=== PATIENT | female | born 1955 | race Caucasian/White ===

== ENCOUNTER → 2016-11-12 | Outpatient (CLI) | payer BC ==
[~2016-11-12] MED LIST: BORON; BUTALBITAL/APAP1 TA1 PO; CENTRUM1 TAB PO; CRESTOR 10MG10 MG PO; FIORINAL; FLEXERIL 1010 MG/TAB PO; FLEXERIL10 MG PO; FLOVENT 110MCG7.9 GM IH; FOSAMAX 70MG TA70 MG PO; FOSAMAX70 MG PO; GLUCOSAMINE & C1 TA1 PO; GLUCOSAMINE PO; GLUCOSAMINE/CHONDROI; HCTZ 25MG25 MG PO; LEVOTHYROXINE0.05 M1 PO; LEVOXYL0.05 MG PO; LOVAZA1 GM PO; MAXALT MLT10 MG/TAB PO; MAXALT10 MG PO; NASONEX SPRAY; OSCAL 500MG/VI500 MG PO; PLAVIX 75MG TAB75 MG PO; PREMARIN 0.9MG0.9 MG PO; PRILOSEC 20MG20 MG PO; SINGULAIR10 MG PO; SUDAFED 12HR120 MG PO; SYMBICORT1 AE1 IH; TYLENOL 500MG500 MG PO; XOPENEX 3 ML3 M1 IH
== END ==
LOC: MC.RAD 08:57
DX: Z12.31 Encounter for screening mammogram for malignant neoplasm of breast (principal)

== ENCOUNTER → 2017-12-02 | Outpatient (CLI) | payer BC | LOC: MC.RAD 10:32 | DX: Z12.31 Encounter for screening mammogram for malignant neoplasm of breast (principal) ==

== ENCOUNTER → 2018-12-19 | Outpatient (CLI) | payer MEDICARE, OTHER | LOC: MC.RAD 14:57 | DX: Z12.31 Encounter for screening mammogram for malignant neoplasm of breast (principal) ==

== ENCOUNTER → 2020-03-08 | Outpatient (CLI) | payer MEDICARE, OTHER | LOC: MC.RAD 15:53 | DX: Z12.31 Encounter for screening mammogram for malignant neoplasm of breast (principal) ==

== ENCOUNTER → 2021-04-08 | Outpatient (CLI) | payer MEDICARE, OTHER | LOC: MC.RAD 11:30 | DX: Z12.31 Encounter for screening mammogram for malignant neoplasm of breast (principal) ==

== ENCOUNTER → 2022-05-14 | Outpatient (CLI) | payer MEDICARE | LOC: MC.RAD 09:08 | DX: Z12.31 Encounter for screening mammogram for malignant neoplasm of breast (principal) ==

== ENCOUNTER → 2024-07-12 | Outpatient (CLI) | payer MEDICARE ==
[~2024-07-12] MED LIST changes: +CLARITIN 1010 MG/TAB PO; +IRON TABLETS325 MG PO; +JANTOVEN2 MG PO; +NATURAL E400 IU PO; +PROTONIX20 MG PO; +SINGULAIR 110 MG/TAB PO; +SYNTHROID0.05 MG/TA PO
== END ==
LOC: MC.RAD 13:32
DX: Z12.31 Encounter for screening mammogram for malignant neoplasm of breast (principal)